=== PATIENT | female | born 1985 | race Caucasian/White ===

== ENCOUNTER 2018-08-13 10:17 | Emergency (ER) | payer OTHER ==
[2018-08-13 10:27] VITALS: BP 126/85; PULSE 82; TEMP 98.3; BMI 27.4
--- NOTE | 2018-08-13 10:50 | PDOC ---
History of Present Illness - General History Source: Patient - History of Present Illness Presenting Symptoms: Chest Pain Timing/Duration: reports: intermittent <Allie Alonzo - Last Filed: 08/13/18 13:28> <Clara Rawls - Last Filed: 08/16/18 16:13> - General Chief Complaint: Chest Pain Stated Complaint: CHEST PAIN Time Seen by Provider: 08/13/18 10:38 Past History - Past Medical History COPD: No Other medical history: PE 07/2017 - Surgical History Cholecystectomy: (2013) - Immunization History Immunization Up to Date: Yes - Suicide/Smoking/Psychosocial Hx Smoking History: Former smoker Have you smoked in the past 12 months: No If you are a former smoker, when did you quit?: JUN 2016 Information on smoking cessation initiated: No Hx Alcohol Use: No Drug/Substance Use Hx: No <Allie Alonzo - Last Filed: 08/13/18 13:28> <Clara Rawls - Last Filed: 08/16/18 16:13> - Past Medical History Allergies/Adverse Reactions: Allergies Allergy/AdvReac Type Severity Reaction Status Date / Time Penicillins Allergy Verified 08/13/18 10:24 Home Medications: Ambulatory Orders Apixaban [Eliquis] 5 mg PO DAILY 08/13/18 Review of Systems - Review of Systems Constitutional: No: Fever Respiratory: No: Cough, Shortness of Breath Cardiac (ROS): Yes: Chest Tightness. No: Lightheadedness, Palpitations, Syncope ABD/GI: No: Nausea, Vomiting <Allie Alonzo Last Filed: 08/13/18 13:28> *Physical Exam - Physical Exam General Appearance: Yes: Appropriately Dressed. No: Apparent Distress HEENT: positive: Normal Voice Neck: positive: Supple Respiratory/Chest: positive: Lungs Clear, Normal Breath Sounds. negative: Respiratory Distress Cardiovascular: positive: Regular Rate, S1, S2 Extremity: positive: Normal Inspection. negative: Pedal Edema Integumentary: positive: Dry, Warm Neurologic: positive: Fully Oriented, Alert, Normal Mood/Affect <Estefani AlonzoJavon Last Filed: 08/13/18 13:28> - Vital Signs Last Vital Signs Temp Pulse Resp BP Pulse Ox 98.3 F 82 18 126/85 99 08/13/18 10:25 08/13/18 10:25 08/13/18 10:25 08/13/18 10:25 08/13/18 10:25 ED Treatment Course - LABORATORY CBC & Chemistry Diagram: 08/13/18 11:00 08/13/18 11:00 <Estefani AlonzoJavon - Last Filed: 08/13/18 13:28> - LABORATORY CBC & Chemistry Diagram: 08/13/18 11:00 08/13/18 11:00 <Clara Rawls - Last Filed: 08/16/18 16:13> - ADDITIONAL ORDERS Additional order review: 08/13/18 11:00 RBC 4.37 MCV 87.0 MCHC 34.0 RDW 14.3 MPV 7.4 L Neutrophils % 56.1 Lymphocytes % 31.0 Monocytes % 7.8 Eosinophils % 4.4 Basophils % 0.7 Medical Decision Making <Estefani AlonzoJavon - Last Filed: 08/13/18 13:28> <Clara Rawls - Last Filed: 08/16/18 16:13> - Medical Decision Making 08/13/18 10:48 33-year-old female, 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 Patient states 5 days ago developed vague pain in both of her lower legs that has since resolved and at some point developed left-sided chest tightness radiating to upper back with numbness of her left arm. States chest tightness, worse when she bends over. Denies shortness of breath, palpitations, diaphoresis, nausea or or vomiting. States symptoms similar to when she was diagnosed w/ PE 1 year ago, shortly after starting OCPs. Has since stopped meds. States M.D. decreased Eliquis dose several months ago with plan to have patient discontinue medications in the near future See exam CP in pt w/ h/o provoked PE, on eliquis, very low risk of PE Very low risk of PE per Wells' Criteria, unlikely ACS, dissection and no e/o infxn Per d/w ED attg, will r/o w/ ddimer and b/l LE dopplers -EKG/CXR/labs r/o other source -dispo pending 08/13/18 11:13 08/13/18 12:30 Labs including ddimer negative. Dopplers of LE pending. Anticipate discharge w/ follow up 08/13/18 13:28 US read as neg for DVT. Pt stable for discharge w/ PMD f/u this week (Allie Alonzo) The patient was seen and evaluated in conjunction with midlevel provider under my direct supervision, ancillary studies were reviewed. I agree with the plan as outlined by ERNIE Alonzo in summary, 33 YOF with chest pain, with vague leg pain. no objective findings of DVT or calf tenderness lungs clear, RRR abdomen soft NTND. Well's score 1.5, low risk, will D dimer and duplex to r/o clot and risk stratify. dimer neg. DVT neg. min symptomatic, already on AC low suspicion for large PE, will discharge. discussed results with patient, agree with impression and plan 08/13/18 11:22 08/16/18 16:13 (Clara Rawls) *DC/Admit/Observation/Transfer <Allie Alonzo - Last Filed: 08/13/18 13:28> <Clara Rawls - Last Filed: 08/16/18 16:13> Diagnosis at time of Disposition: Chest tightness - Discharge Dispostion Disposition: HOME Condition at time of disposition: Good - Referrals Referrals: Douglas Perales MD [Primary Care Provider] - - Patient Instructions Additional Instructions: The cause of your chest pain is unclear as your EKG/CXR, blood test for blood clot and ultrasound of your legs were all negative Please follow up with your PMD this week If symptoms worsen, please return to the ED - Post Discharge Activity
[2018-08-13 11:26] LABS: BASO % 0.7 % (0-2.0); EOS % 4.4 % (0-4.5); HEMOGLOBIN 12.9 GM/dL (10.7-15.3); MCH 29.6 pg (25.7-33.7); MEAN PLT VOLUME 7.4 fl (7.5-11.1); MONO % 7.8 % (3.8-10.2); NEUT % 56.1 % (42.8-82.8); PLATELET COUNT 315 K/MM3 (134-434); RBC 4.37 M/mm3 (3.60-5.2); RDW 14.3 % (11.6-15.6); WHITE BLOOD COUNT 5.1 K/mm3 (4.0-10.0)
[2018-08-13 11:51] LABS: ALBUMIN 3.5 g/dl (3.4-5.0); ALK PHOS 120 U/L (45-117); ANION GAP 5 MMOL/L (8-16); BILIRUBIN,TOTAL 0.4 mg/dL (0.2-1); BLOOD UREA NITROGEN 10 mg/dL (7-18); CALCIUM 8.8 mg/dL (8.5-10.1); CHLORIDE 106 mmol/L (98-107); CO2 29 mmol/L (21-32); CREATININE 0.8 mg/dL (0.55-1.3); GLUCOSE,RANDOM 93 mg/dL (74-106); SGOT/AST 22 U/L (15-37); SGPT/ALT 24 U/L (13-61); SODIUM 140 mmol/L (136-145); TOT PROT 7.6 g/dl (6.4-8.2)
--- NOTE | 2018-08-14 15:37 | EKG ---
Test Reason : Blood Pressure : / mmHG Vent. Rate : 088 BPM Atrial Rate : 088 BPM P-R Int : 136 ms QRS Dur : 074 ms QT Int : 356 ms P-R-T Axes : 046 028 028 degrees QTc Int : 430 ms NORMAL SINUS RHYTHM NORMAL ECG NO PREVIOUS ECGS AVAILABLE Confirmed by ANAND CHIN MD ([id number]) on 08/14/2018 3:36:39 PM Referred By: Confirmed By:ANAND CHIN MD
== END 2018-08-13 14:16 | disposition home or self-care (01) ==
LOC: JER 10:17
DX: R07.89 Other chest pain (principal); Z86.711 Personal history of pulmonary embolism; Z79.01 Long term (current) use of anticoagulants; Z88.0 Allergy status to penicillin
CPT/HCPCS: 36415; 71046-TC-FY; 80053; 82550; 84484; 84703; 85025; 85379; 93005; 93010; 93970-TC; 99282-25

== ENCOUNTER 2021-11-01 20:06 | Emergency (ER) | payer BC, OTHER ==
[2021-11-01 20:33] VITALS: TEMP 100.2; BMI 29.0
[2021-11-02 03:18] VITALS: BP 115/72; PULSE 83
[2021-11-03 10:07] LABS: SARS-CoV-2 NAA Not Detected (Not Detected)
== END 2021-11-02 03:18 | disposition home or self-care (01) ==
LOC: JER 20:06
DX: R07.89 Other chest pain (principal); R68.83 Chills (without fever); Z11.52 Encounter for screening for COVID-19
CPT/HCPCS: 71046-TC-FY; 93005; 93010; 99284-25; C9803; U0003; U0005

== ENCOUNTER 2021-11-11 15:57 | Emergency (ER) | payer BC, OTHER ==
[2021-11-11 16:17] VITALS: BP 113/72; PULSE 80; TEMP 98.2; BMI 29.0
[2021-11-11] MEDS ORDERED: IBUPROFEN 400 MG TABLET (FP) PO ONE (16:30)
[2021-11-12 16:09] LABS: SARS-CoV-2 NAA Not Detected (Not Detected)
== END 2021-11-11 17:31 | disposition home or self-care (01) ==
LOC: FER 15:57
DX: R51.9 Headache, unspecified (principal)
CPT/HCPCS: 84703; 99283-25; C9803; U0003; U0005

== ENCOUNTER 2021-12-09 00:32 | Emergency (ER) | payer OTHER ==
[2021-12-09 00:39] VITALS: BP 108/77; PULSE 74; TEMP 98.3; BMI 29.0
[2021-12-09 02:02] LABS: CHLORIDE 105 mmol/L (98-107); SODIUM 140 mmol/L (136-145)
[2021-12-09 02:04] LABS: CALCIUM 8.7 mg/dL (8.5-10.1)
[2021-12-09 02:05] LABS: ALBUMIN 3.7 g/dl (3.4-5.0); ANION GAP 7 MMOL/L (8-16); BLOOD UREA NITROGEN 14.2 mg/dL (7-18); CO2 28 mmol/L (21-32); GLUCOSE,RANDOM 102 mg/dL (74-106)
[2021-12-09 02:08] LABS: CREATININE 0.7 mg/dL (0.55-1.3); SGOT/AST 17 U/L (15-37); SGPT/ALT 21 U/L (13-61)
[2021-12-09 02:10] LABS: BILIRUBIN,TOTAL 0.2 mg/dL (0.2-1); TOT PROT 7.5 g/dl (6.4-8.2)
[2021-12-09 02:11] LABS: ALK PHOS 102 U/L (45-117)
== END 2021-12-09 04:51 | disposition home or self-care (01) ==
LOC: FER 00:32
DX: R07.81 Pleurodynia (principal)
CPT/HCPCS: 36415; 71275-TC; 80053; 81025; 82550; 84484; 85379; 93005; 99285-25; Q9967

== ENCOUNTER 2022-09-01 21:36 | Emergency (ER) | payer OTHER ==
[2022-09-01 21:49] VITALS: BP 118/78; PULSE 88; RESP 16; TEMP 98.7; BMI 29.0
[2022-09-01 22:37] LABS: HEMATOCRIT 36.7 % (32.4-45.2); MCH 32.5 pg (25.7-33.7); MCHC 35.5 g/dl (32.0-36.0); MEAN CELL VOLUME 91.6 fl (80-96); PLATELET COUNT 299.9 10^3/uL (134-434); RBC 4.01 10^6/uL (3.60-5.2); RDW 13.4 % (11.6-15.6); WHITE BLOOD COUNT 8.7 10^3/uL (4.0-10.8)
[2022-09-01 22:54] LABS: INR 1.03 (0.83-1.09); PROTHROMBIN TIME (PATIENT) 11.9 SEC (9.7-13.0)
[2022-09-01 23:01] LABS: ALBUMIN 3.7 g/dl (3.4-5.0); BILIRUBIN,TOTAL 0.2 mg/dl (0.2-1); CALCIUM 8.8 mg/dl (8.5-10); CREATININE 0.7 mg/dl (0.55-1.3)
[2022-09-01 23:12] LABS: PLATELET ESTIMATE ADEQUATE
== END 2022-09-02 00:09 | disposition home or self-care (01) ==
LOC: FER 21:36
DX: R07.89 Other chest pain (principal)
CPT/HCPCS: 36415; 80053; 85027; 85379; 85610; 99283-25

== ENCOUNTER 2023-04-17 19:23 | Emergency (ER) | payer OTHER ==
[2023-04-17 19:36] VITALS: BP 138/89; PULSE 75; RESP 16; TEMP 98.3; BMI 29.7
[2023-04-17 21:02] LABS: HEMATOCRIT 40.4 % (32.4-45.2); HEMOGLOBIN 13.7 G/dL (10.7-15.3); MEAN CELL VOLUME 91.2 fl (80-96); MEAN PLT VOLUME 7.8 fl (7.5-11.1); RBC 4.43 10^6/uL (3.60-5.2); RDW 13.9 % (11.6-15.6); WHITE BLOOD COUNT 8.7 10^3/uL (4.0-10.8)
[2023-04-17 21:04] LABS: INR 1.13 (0.83-1.09); PROTHROMBIN TIME (PATIENT) 13.1 SEC (9.7-13.0)
[2023-04-17 21:10] LABS: ALBUMIN 4.1 g/dl (3.4-5.0); BILIRUBIN,TOTAL 0.3 mg/dl (0.2-1); CALCIUM 9.1 mg/dl (8.5-10); CREATININE 0.8 mg/dl (0.55-1.3); POTASSIUM 4.3 mmol/L (3.5-5.1); TOT PROT 7.6 g/dl (6.4-8.2)
== END 2023-04-17 21:44 | disposition home or self-care (01) ==
LOC: FER 19:23
DX: M94.0 Chondrocostal junction syndrome [Tietze] (principal); R07.9 Chest pain, unspecified
CPT/HCPCS: 36415; 80053; 81025; 85027; 85379; 85610; 99283-25